=== PATIENT | female | born 1930 | race Caucasian/White ===

== ENCOUNTER 2017-02-14 23:26 | Emergency (ER) | payer MEDICARE, OTHER ==
[~2017-02-14 23:26] MED LIST: ALBUTEROL S3 ML/VIAL NEB; ATIVAN0.5 MG PO; B-121000 MCG PO; BREO ELLIPTA 11 EACH IH; CELEXA20 MG PO; CLARITIN10 MG PO; MEGACE400 MG/10 PO; NORVASC10 MG PO; OMEPRAZOLE40 MG PO; PREDNISONE10 MG PO; PROAIR HFA8.5 GM IH; SPIRIVA18 MCG IH; SYMBICORT 16010.2 GM IH; VITAMIN D35000 UNI1 PO; ZITHROMAX TRI-500 MG PO
== END 2017-02-15 00:45 | disposition home or self-care (01) ==
LOC: ER 23:26
DX: J44.1 Chronic obstructive pulmonary disease with (acute) exacerbation (principal); I10 Essential (primary) hypertension; F17.210 Nicotine dependence, cigarettes, uncomplicated; Z90.49 Acquired absence of other specified parts of digestive tract; Z98.51 Tubal ligation status; Z99.81 Dependence on supplemental oxygen; Z79.899 Other long term (current) drug therapy; Z88.0 Allergy status to penicillin; Z88.1 Allergy status to other antibiotic agents; Z88.7 Allergy status to serum and vaccine
CPT/HCPCS: 36415; 96374